=== PATIENT | female | born 1965 | race Caucasian/White ===

== ENCOUNTER 2023-01-30 09:17 | Outpatient (CLI) | payer BC | END 2023-01-30 09:18 | disposition home or self-care (01) | LOC: TBSIIMAG 09:17 | PROVIDERS: ATTEND Surgery | DX: M50.321 Other cervical disc degeneration at C4-C5 level (principal); M47.812 Spondylosis without myelopathy or radiculopathy, cervical region; M50.322 Other cervical disc degeneration at C5-C6 level; M50.323 Other cervical disc degeneration at C6-C7 level; M46.02 Spinal enthesopathy, cervical region; M89.38 Hypertrophy of bone, other site | CPT/HCPCS: 72050 ==

== ENCOUNTER 2023-02-05 14:55 | Outpatient (CLI) | payer BC | END 2023-02-05 14:56 | disposition home or self-care (01) | LOC: TBSIIMAG 14:55 | PROVIDERS: ATTEND Surgery | DX: M47.812 Spondylosis without myelopathy or radiculopathy, cervical region (principal); M48.02 Spinal stenosis, cervical region | CPT/HCPCS: 72141 ==